=== PATIENT | male | born 1955 | race Caucasian/White ===

== ENCOUNTER 2016-10-18 21:58 | Emergency (ER) | payer OTHER ==
[~2016-10-18] VITALS: Ht 180.3 cm; Wt 136.4 kg
[2016-10-18 22:07] VITALS: BP 133/76; PULSE 87; RESP 20; O2SAT 100
[2016-10-18] MEDS ORDERED: Famotidine 10 mg/mL 2 mL Inj IVPUSH ONE (22:15)
[2016-10-18] MEDS ORDERED: Dexamethasone Inj 20 MG in 0.9% Sodium Chloride-Pha MIX 50 ML IV ONE (22:15)
[2016-10-18 22:30] VITALS: BP 128/65; PULSE 88; RESP 18; O2SAT 93
--- NOTE | 2016-10-18 23:56 | ED.REPORT ---
HPI-Allergic Reaction Date of Service Oct 18, 2016 ED Provider: Manas Pantoja DO A 60 year old male with a history of hypertension on Lisinopril presents to the ED due to an allergic reaction. The pt took Mucinex and Robitussin DM tonight and noticed that his lips and tongue began swelling. The pt denies restriction of airflow or difficulty breathing. He suspects that his symptoms are due to an allergic reaction to the medications. The pt took 100 of Benadryl prior to arrival in the ED. Nursing Notes Stated Complaint: ALLERGIC REACTION TO MEDICATION Chief Complaint: Allergic Reaction Nursing Notes Reviewed: Yes Allergies: Coded Allergies: No Known Allergies (Unverified , 10/18/16) General Time Seen by MD: 22:11 Chief Complaint Allergic reaction Hx Obtained From: Patient, Spouse Arrived By: Walk-in Onset Occurred: 1 - 4 hours ago Symptom Duration: Since onset Recent Healthcare: No recent doctor visit, No recent hospitalization Similar Sx Previous: No Past Medical History Past Medical History hypertension Past Surgical History none reported Smoking History Unknown if Ever Smoker Social History Other Social History: Good social support, Ambulatory Status Independent Review of Systems Review of Systems Note: lip swelling Constitutional: Denies: Fever Ears / Nose / Throat: Reports: Tongue swelling Respiratory: Denies: Non-productive cough, Shortness of breath GI: Denies: Abdominal pain Complete sys rev & neg: except as marked. Physical Exam Initial Vital Signs Vital Signs (First) Date Time Temp Pulse Resp B/P Pulse Ox O2 Delivery O2 Flow Rate FiO2 10/18/16 22:07 37.0 87 20 133/76 100 Room Air Initial VS: Reviewed General/Constitutional: Awake, Alert Respiratory / Chest: Atraumatic, Breath sounds NL, Breath sounds = bilat, No respiratory distress Cardiovascular: Heart rate NL, Regular rhythm, Heart sounds NL Skin: Color NL, Warm, Dry Head / Eyes: Atraumatic, Normocephalic, PERRL, EOMI ENT: Atraumatic, Airway patent, Mucous membranes moist angioedema of lips uvula edema mild tongue angioedema Abdomen: Atraumatic, Soft, Non-tender Neurologic: Oriented X3, Speech NL, No motor deficits, No sensory deficits Neck: Atraumatic, Supple, Full range of motion Back: Atraumatic, Full range of motion Upper Extremity / MS: Atraumatic, Full range of motion Lower Extremity / Pelvis / MS: Atraumatic, Full range of motion Psychiatric: Affect NL, Mood NL Interpretation & Diagnostics Lab Results Interpretation Test 10/18/16 22:10 Hold Purple Top Tube Received (Received) Hold Blue Top Tube Received (Received) Hold Powersite Top Tube Received (Received) Hold Hernandez Top Tube Received (Received) Pulse Oximetry Interpretation Pulse Oximetry Interpretation: 100% on room air Pulse Oximetry: Pulse Ox normal Re-Eval/Medical Decision Med Decision/Clinical Course 4 hours of observation and all signs and symptoms have resolved. The lip edema is gone. The uvula edema is gone. His tongue is normal. His vitals are stable and normal. His lungs are clear. He feels ready for discharge. This is either related to his GARRETT inhibitor or possibly the cold remedy he took tonight. Either way he needs to not take either of these ever again and see his doctor closely. I will place him on 3 days of dexamethasone. Recommended allergy testing. EpiPen was prescribed. He was discharged in stable condition. Source of Hx: Family Re-Evaluation/Progress #1: Time of Eval: 22:58 Patient Status: Condition improved Re-Evaluation/Progress Note: Pt rechecked, whose condition has improved. He still has some mild tongue angioedema. Re-Evaluation/Progress #2: Time of Eval: 00:01 Patient Status: Condition improved Re-Evaluation/Progress Note: Pt rechecked, who is resting comfortably. He has mild uvula edema but is feeling better. Re-Evaluation/Progress #3: Time of Eval: 02:20 Patient Status: Condition resolved Re-Evaluation/Progress Note: Pt rechecked, whose condition has resolved. No angioedema or swelling of the lips or uvula is present. The plan for discharge is discussed. The pt understands and agrees with the plan. All questions are addressed at this time. Counseled Regarding: Diagnosis, Lab results, Need for follow-up, When/why to return to ED Discharge & Departure Primary Impression: Angioedema Encounter type: initial encounter Qualified Code: T78.3XXA - Angioneurotic edema, initial encounter Disposition: Home Discharge Condition All VS Reviewed: Yes Condition: Stable Patient Instructions: Anaphylaxis (DC) Additional Instructions: I suspect that you had angioedema from the GARRETT inhibitor that you are taking for your blood pressure. Never take this medication again. Never take an Garrett receptor blocking medication as well. You need to call your doctor first thing in the morning for a follow-up to be put on another antihypertensive. Take dexamethasone twice daily for 3 days. Use the EpiPen as instructed if needed. Do not hesitate to return to the emergency department if your lips start to swell again or you have any tongue or oropharyngeal swelling. Return right away with any new or worsening symptoms. Discuss allergy testing with your primary care physician as well in the event that you are actually allergic to something you ingested tonight. Referrals: Jayden Tamez DO (PCP) Crit Care Except Billable Proc Time Spent: 30-74 minutes Scribe Attestation Portions of this note were transcribed by Carolina Jack. I, Dr. Pantoja personally performed the history, physical exam and medical decision-making; I reviewed and confirmed the accuracy of the information in the transcribed note. Signed by: Sonia Shaikh, 10/19/2016 and 02:56. copies to: Jayden Tamez Todd P DO Oct 18, 2016 23:56 CAROLINA JACK Oct 19, 2016 00:52
[2016-10-19 00:15] VITALS: BP 116/67; PULSE 78; RESP 16; O2SAT 91
[2016-10-19 01:45] VITALS: BP 123/65; PULSE 72; RESP 16; O2SAT 93
[2016-10-19 02:47] VITALS: BP 128/81; PULSE 75; RESP 16; O2SAT 93
== END 2016-10-19 02:49 | disposition home or self-care (01) ==
LOC: SED 21:58
DX: T78.3XXA Angioneurotic edema, initial encounter (principal); X58.XXXA Exposure to other specified factors, initial encounter; Y93.89 Activity, other specified; Y99.8 Other external cause status; Y92.9 Unspecified place or not applicable; I10 Essential (primary) hypertension
CPT/HCPCS: 96372; 96374; 96375; 99291; J0171; J1100; J1200